=== PATIENT | female | born 1965 | race Caucasian/White ===

== ENCOUNTER → 2023-05-23 15:24 | Outpatient (REF) | payer BC, SELFPAY | LOC: RAD 15:24 | PROVIDERS: ATTENDING PHYSICIAN Nurse Practitioner Adult Health | DX: M25.511 Pain in right shoulder (principal) | CPT/HCPCS: 73030 ==

== ENCOUNTER → 2023-11-08 13:24 | Outpatient (REF) | payer BC, SELFPAY | LOC: HWWDC 13:24 | PROVIDERS: ATTENDING PHYSICIAN Nurse Practitioner Adult Health | DX: Z12.31 Encounter for screening mammogram for malignant neoplasm of breast (principal) | CPT/HCPCS: 77063; 77067 ==

== ENCOUNTER → 2024-05-29 13:13 | Outpatient (REF) | payer BC, SELFPAY | LOC: HWRAD 13:13 | PROVIDERS: ATTENDING PHYSICIAN Psychiatry & Neurology Psychiatry; FAMILY PHYSICIAN Student in an Organized Health Care Education/Training Program | DX: R41.3 Other amnesia (principal) | CPT/HCPCS: 70450 ==

== ENCOUNTER → 2025-01-08 10:55 | Outpatient (REF) | payer BC, SELFPAY | LOC: HWWDC 10:55 | PROVIDERS: ATTENDING PHYSICIAN Student in an Organized Health Care Education/Training Program | DX: Z12.31 Encounter for screening mammogram for malignant neoplasm of breast (principal) | CPT/HCPCS: 77063; 77067 ==

== ENCOUNTER 2025-03-15 15:19 | Inpatient (IN) | payer BC, SELFPAY ==
[2025-03-14 23:09] VITALS: BP 96/58
[2025-03-14 23:12] VITALS: BP 98/59
[2025-03-14 23:17] VITALS: BMI 33.4
[2025-03-14 23:43] LABS: Hematocrit 39.5 % (37.0-47.0); Hemoglobin 12.1 g/dL (12.0-16.0); Mean Corp Hgb Conc. 30.6 g/dL (33.0-37.0); Mean Corpuscular Volume 88.6 fL (81.0-99.0); Nucleated Red Blood Cells % 0 %; Platelet Count 302 10^3/uL (130-400); Red Cell Dist. Width 14.7 % (11.5-14.5)
[2025-03-14] MEDS: NSS 1000 IV (23:47)
--- NOTE | 2025-03-14 23:56 | ED.GENMED ---
History of Present Illness
<Ashley Black PA-C - Last Filed: 03/15/25 12:13>
General
Chief Complaint: Fall
Source: patient
Exam Limitations: altered mental status
Time Seen by Provider: 03/14/25 23:39
Nursing documentation reviewed up to this point in time: agreed with
History of Present Illness
History of Present Illness:
Patient is a 59-year-old female with history hypertension, insulin-dependent diabetes who presents to the emergency department for evaluation of left leg weakness. Patient's history taking is somewhat limited as her thought processes seem
disorganized. However, she states that she was walking in her kitchen talking to her nephew on the phone around 7/8 PM when she felt that her left foot was dragging on the ground. She felt that she had weakness. She then lost her balance and fell
however did not hit her head. She was on the phone with her nephew at the time who recommended she call [phone]. Patient apparently declined however her nephew then called 911 to her home.
Patient is concerned that she had a 'mini stroke'. She states the weakness in the left leg has improved. She denies any headache, visual changes, numbness/tingling in arms or legs. She denies any difficulties with speech or swallowing.
She states that she has been very depressed recently and her medications are not working. She currently takes sertraline prescribed by psychiatrist. However�she denies any acute suicidal or homicidal ideations.
Patient's nephew has concerns that she may be drinking alcohol although patient states she has not had alcohol in a few weeks. Her nephew states that she has been increasingly weak.
Past History
<Ashley Black PA-C - Last Filed: 03/15/25 12:13>
Past History
ED Past Medical History: GERD, HTN, Hypercholesterolemia, IDDM, Renal failure (Chronic kidney disease), Psychiatric (Anxiety/depression) and Other (Osteoarthritis); Negative CAD
ED Past Surgical History: Orthopedic (Bilateral ankle)
Social History
Tobacco: Smoker (Quit 3 weeks ago)
Alcohol: Occasional (Quit 3 weeks ago)
Drug: None
Living: with family
Employment: Not employed
Family History
Family History: Other (Noncontributory)
Review of Systems
<Ashley Black PA-C - Last Filed: 03/15/25 12:13>
Review of Systems
Allergies reviewed?: Yes
All Other Systems: ROS reviewed and negative except as documented in HPI and ROS
Phy Exam
<Ashley Black PA-C - Last Filed: 03/15/25 12:13>
Physical Exam
Physical Exam:
Vitals: BP soft, otherwise vital signs stable.
General: Patient is resting comfortably in no distress
Skin: Warm and dry, no rashes or lesions
Head: Normocephalic, atraumatic
Eyes: Sclera nonicteric. EOMs intact. Pupils equal round and reactive to light bilaterally. No nystagmus.
Throat: Dry mucous membranes. Protecting airway
Neck: Normal ROM, no cervical spine tenderness, no meningismus
Cardiac: Regular rate and rhythm, no murmurs.
Pulm: Normal respiratory effort. Lungs clear bilaterally
Abdomen: No abdominal tenderness.
.
Extremities: Strength 5/5 in right lower extremity, 4/5 in left lower extremity. Bilateral upper extremities strength 5/5.. Normal sensation
Neuro: AAOx3. CN II-XII grossly intact. No facial droop or asymmetry. No focal neurologic deficits.
Psychiatric: Somewhat disorganized thought process. + Depression
Course
<Ashley Black PA-C - Last Filed: 03/15/25 12:13>
Orders/Labs/Results
Orders:
Orders
03/14/25 23:28
EKG- Treatment ONCE
03/14/25 23:35
Alcohol Urgent
Complete Blood Count/With Diff Urgent
Comprehensive Metabolic Panel Urgent
03/14/25 23:40
Add On- LAB Urgent
Tests Added?: alcohol
0.9% Sodium Chloride 1000 ml [Nss] 1,000 ml IV BOLUS
03/14/25 23:41
Urinalysis Reflex To Culture Urgent
Date Specimen was Collected: 03/14/25
Time Specimen was Collected: 23:49
03/15/25 00:01
CT Head W/o Iv Contrast Urgent
Reason For Exam: left sided weakness
03/15/25 00:07
Electrocardiogram (*1) Urgent
Reason for Study: Fatigue / Weakness
EKG- Treatment ONCE
03/15/25 01:00
Urine Microscopic Reflex Cult Urgent
Urine Culture Urgent
JENNIFER Source: U
Specimen Description:
Date Specimen was Collected: 03/14/25
Time Specimen was Collected: 23:49
03/15/25 02:52
Admit/Transfer Patient As Directed
Co-Sign Provider:
Level of Care: Observation services
Assign to:: Telemetry
Physician / Group: Leonardo
Diagnosis: LE Weakness
Reason for Telemetry: CVA/TIA
Date to Stop Telemetry: 03/18/25
Time to Stop Telemetry: 11:00
PRN Pain Medication Management As Directed
May give lesser potent ordered pain med per pt: Yes
preference::
Protocol:: Medication orders for pain may be administered in a
manner that supports deferring to patient preference
when the pt is:
- Requesting an ordered lesser potent pain medication.
Least to most potent pain medications are defined
as: acetaminophen < NSAID < tramadol < opioids
(morphine, oxycodone, hydromorphone).
- Requesting a lesser dose of the same medication IF
ORDERED.
- Requesting a less intrusive route of administration
if both routes are prescribed by the provider (PO <
IV).
03/15/25 02:53
Code Status As Directed
Resuscitation Status: Full Code
03/15/25 04:21
Acetaminophen [Tylenol] 650 mg PO Q4HPRN PRN
Dextrose 50%-Water [Dextrose 50% Syringe] 12.5 grams IV [id number] PRN
Glucagon [GlucaGen] 1 mg IM PRN PRN
03/15/25 04:21
Consult Notification Routine
Specialty to Notify: Neurology
Date consulting provider notified: 03/15/25
Time consulting provider notified: 08:30
Notified:: Provider
NEUROLOGY CONSULT Routine
Consulting Provider: Remi Hudson
Was physician already notified: No
Reason for consult: LLE Weakness
Activity As Directed
Activity Level: Ambulate
With Assistance
Bedside Glucose Monitoring As Directed
Frequency: AC&HS
Additional Instructions:: Change to q6h if pt on TPN, tube feeding or not eating
EKG with chest pain [ECG as needed] As Directed
ECG as needed for:: Chest Pain
I/O [Intake/ Output] As Directed
Frequency: Per unit guidelines
Neurological Checks As Directed
Frequency: q4h
Orthostatic Vital Signs As Directed
Orthostatic VS Frequency: BID
Pneumatic Compression Sleeves As Directed
Type: Knee high
Vital Signs As Directed
Frequency: Per unit guidelines
Weight As Directed
Frequency: Daily
Oxygen Therapy [O2 Therapy] [RESP] Routine
Titrate/Wean O2 to maintain O2 sat greater than (%): 94
Ot Eval And Treat Routine
PT Consult [Pt Eval And Treat] Routine
Activity Level: Ambulate
With Assistance
Speech Therapy Eval & Treat Routine
DX Deep Vein Thrombosis Video Routine
03/15/25 Breakfast
2000 calorie (17 carb) Diabetic
At Your Request: Full Participation
Does patient need a safe tray?: No
Reason for opting out of [employer] Interface Developer order writing: Provider Decision
03/15/25 07:23
Basic Metabolic Panel IN AM
Cardiovascular Evaluation IN AM
Complete Blood Count/No Diff IN AM
Glycohemoglobin (HgbA1c) IN AM
TSH Reflex To Free T4 Routine
03/15/25 07:30
Insulin Aspart Corrective Low [Novolog Flexpen-Low Resistance] See Protocol SC AC
03/15/25 08:00
Aspirin Chewable [Low Strength Aspirin] 81 mg PO DAILY
Clopidogrel Bisulfate [Plavix] 75 mg PO DAILY
Dapagliflozin [Farxiga] 10 mg PO DAILY
Sertraline HCl [Zoloft] 50 mg PO DAILY
03/15/25 22:00
Atorvastatin [Lipitor] 40 mg PO HS
Olanzapine [Zyprexa] 7.5 mg PO HS
03/18/25 11:00
DC Protocol for Telemetry ONCE
Abnormal Lab Results
03/14/25 03/15/25
23:35 01:00
WBC 12.5 H 10^3/uL
(4.8-10.8)
MCHC 30.6 L g/dL
(33.0-37.0)
RDW 14.7 H %
(11.5-14.5)
Abs Immat Gran (auto) 0.1 H 10^3/uL
(0-0.05)
Absolute Neuts (auto) 8.8 H 10^3/uL
(1.4-6.5)
Absolute Monos (auto) 0.9 H 10^3/uL
(0.1-0.6)
Lymphocytes % 20.1 L %
(20.5-51.1)
Glucose 130 H mg/dl
(70-99)
Ur Occult Blood Reflex 1+ A
(Negative)
Leukocyte Esterase Rfl 3+ A
(Negative)
Urine WBC (Reflex) >100 A /HPF
(0-5)
Urine Bacteria (Reflex) Moderate A
(Negative)
Urine Glucose 4+ A
(Negative)
Urine Albumin (Reflex) 1+ A
(Neg - Trace)
03/14/25 23:35
03/14/25 23:35
Vital Signs
Initial and Last Documented VS:
Initial Vital Signs
BP Pulse Ox
96/58 96
03/14/25 23:09 03/14/25 23:09
Last Documented Vital Signs
Temp Pulse Resp BP Pulse Ox
97.5 F 101 16 163/81 97
03/15/25 07:25 03/15/25 07:25 03/15/25 07:25 03/15/25 07:25 03/15/25 07:45
Dorotalt;Jeronimo Hernandez, DO - Last Filed: 03/15/25 01:28>
Orders/Labs/Results
Orders:
Orders
03/14/25 23:28
EKG- Treatment ONCE
03/14/25 23:35
Alcohol Urgent
Complete Blood Count/With Diff Urgent
Comprehensive Metabolic Panel Urgent
03/14/25 23:40
Add On- LAB Urgent
Tests Added?: alcohol
0.9% Sodium Chloride 1000 ml [Nss] 1,000 ml IV BOLUS
03/14/25 23:41
Urinalysis Reflex To Culture Urgent
Date Specimen was Collected: 03/14/25
Time Specimen was Collected: 23:49
03/15/25 00:01
CT Head W/o Iv Contrast Urgent
Reason For Exam: left sided weakness
03/15/25 00:07
Electrocardiogram (*1) Urgent
Reason for Study: Fatigue / Weakness
EKG- Treatment ONCE
03/15/25 01:00
Urine Microscopic Reflex Cult Urgent
Urine Culture Urgent
JENNIFER Source: U
Specimen Description:
Date Specimen was Collected: 03/14/25
Time Specimen was Collected: 23:49
03/15/25 02:52
Admit/Transfer Patient As Directed
Co-Sign Provider:
Level of Care: Observation services
Assign to:: Telemetry
Physician / Group: Leonardo
Diagnosis: LE Weakness
Reason for Telemetry: CVA/TIA
Date to Stop Telemetry: 03/18/25
Time to Stop Telemetry: 11:00
PRN Pain Medication Management As Directed
May give lesser potent ordered pain med per pt: Yes
preference::
Protocol:: Medication orders for pain may be administered in a
manner that supports deferring to patient preference
when the pt is:
- Requesting an ordered lesser potent pain medication.
Least to most potent pain medications are defined
as: acetaminophen < NSAID < tramadol < opioids
(morphine, oxycodone, hydromorphone).
- Requesting a lesser dose of the same medication IF
ORDERED.
- Requesting a less intrusive route of administration
if both routes are prescribed by the provider (PO <
IV).
03/15/25 02:53
Code Status As Directed
Resuscitation Status: Full Code
03/15/25 04:21
Acetaminophen [Tylenol] 650 mg PO Q4HPRN PRN
Dextrose 50%-Water [Dextrose 50% Syringe] 12.5 grams IV [id number] PRN
Glucagon [GlucaGen] 1 mg IM PRN PRN
03/15/25 04:21
Consult Notification Routine
Specialty to Notify: Neurology
Date consulting provider notified: 03/15/25
Time consulting provider notified: 08:30
Notified:: Provider
NEUROLOGY CONSULT Routine
Consulting Provider: Remi Hudson
Was physician already notified: No
Reason for consult: LLE Weakness
Activity As Directed
Activity Level: Ambulate
With Assistance
Bedside Glucose Monitoring As Directed
Frequency: AC&HS
Additional Instructions:: Change to q6h if pt on TPN, tube feeding or not eating
EKG with chest pain [ECG as needed] As Directed
ECG as needed for:: Chest Pain
I/O [Intake/ Output] As Directed
Frequency: Per unit guidelines
Neurological Checks As Directed
Frequency: q4h
Orthostatic Vital Signs As Directed
Orthostatic VS Frequency: BID
Pneumatic Compression Sleeves As Directed
Type: Knee high
Vital Signs As Directed
Frequency: Per unit guidelines
Weight As Directed
Frequency: Daily
Oxygen Therapy [O2 Therapy] [RESP] Routine
Titrate/Wean O2 to maintain O2 sat greater than (%): 94
Ot Eval And Treat Routine
PT Consult [Pt Eval And Treat] Routine
Activity Level: Ambulate
With Assistance
Speech Therapy Eval & Treat Routine
DX Deep Vein Thrombosis Video Routine
03/15/25 Breakfast
2000 calorie (17 carb) Diabetic
At Your Request: Full Participation
Does patient need a safe tray?: No
Reason for opting out of Hl[employer] Interface Developer order writing: Provider Decision
03/15/25 07:23
Basic Metabolic Panel IN AM
Cardiovascular Evaluation IN AM
Complete Blood Count/No Diff IN AM
Glycohemoglobin (HgbA1c) IN AM
TSH Reflex To Free T4 Routine
03/15/25 07:30
Insulin Aspart Corrective Low [Novolog Flexpen-Low Resistance] See Protocol SC AC
03/15/25 08:00
Aspirin Chewable [Low Strength Aspirin] 81 mg PO DAILY
Clopidogrel Bisulfate [Plavix] 75 mg PO DAILY
Dapagliflozin [Farxiga] 10 mg PO DAILY
Sertraline HCl [Zoloft] 50 mg PO DAILY
03/15/25 22:00
Atorvastatin [Lipitor] 40 mg PO HS
Olanzapine [Zyprexa] 7.5 mg PO HS
03/18/25 11:00
DC Protocol for Telemetry ONCE
Abnormal Lab Results
03/14/25 03/15/25
23:35 01:00
WBC 12.5 H 10^3/uL
(4.8-10.8)
MCHC 30.6 L g/dL
(33.0-37.0)
RDW 14.7 H %
(11.5-14.5)
Abs Immat Gran (auto) 0.1 H 10^3/uL
(0-0.05)
Absolute Neuts (auto) 8.8 H 10^3/uL
(1.4-6.5)
Absolute Monos (auto) 0.9 H 10^3/uL
(0.1-0.6)
Lymphocytes % 20.1 L %
(20.5-51.1)
Glucose 130 H mg/dl
(70-99)
Ur Occult Blood Reflex 1+ A
(Negative)
Leukocyte Esterase Rfl 3+ A
(Negative)
Urine WBC (Reflex) >100 A /HPF
(0-5)
Urine Bacteria (Reflex) Moderate A
(Negative)
Urine Glucose 4+ A
(Negative)
Urine Albumin (Reflex) 1+ A
(Neg - Trace)
03/14/25 23:35
03/14/25 23:35
Vital Signs
Initial and Last Documented VS:
Initial Vital Signs
BP Pulse Ox
96/58 96
03/14/25 23:09 03/14/25 23:09
Last Documented Vital Signs
Temp Pulse Resp BP Pulse Ox
97.5 F 101 16 163/81 97
03/15/25 07:25 03/15/25 07:25 03/15/25 07:25 03/15/25 07:25 03/15/25 07:45
<Ashley Black PA-C - Last Filed: 03/15/25 12:13>
MDM/Problems Addressed
Differential Diagnosis Includes:
Not limited to: Depression, acute dehydration, UTI, TIA/CVA, alcohol abuse, brain bleed, brain mass, etc.
MDM/Problems Addressed:
59-year-old female presenting with left lower extremity weakness resulting in fall at home. She states her left leg feels �heavy�. It is somewhat unclear what time these symptoms started possibly around 6 PM no other neurological symptoms. She did
not strike her head. She does admit to having some issues with mental health and worsening depression.
Vital signs reviewed. On exam, patient is awake and alert. She does appear to have some mildly decreased strength in left lower extremity however can move against gravity. No loss of sensation in extremities. LLE is neurovascularly intact. No other
neurological deficits noted.
Impression is left sided weakness of unknown etiology. Concern would be central process, including CVA. Patient has an NIH of 0 and onset somewhat unclear � TNK not indicated.
Will check basic labs, UA, CT head. Patient will likely require admission.
Update: labs with mild leukocytosis. Otherwise labs unremarkable. CT head without acute findings.
Patient was able to ambulate to the bathroom with assistance however, did have additional fall up upon return to bed due to left leg weakness. She did not strike her head or sustained any injuries.
Ultimately � patient will require admission for further workup and likely MRI to rule out CVA, other central process.
UA appears contaminated � will hold antibiotics. Patient accepted to hospitalist service in stable condition.
Chronic conditions affecting care:
Insulin-dependent diabetes, hypertension, depression
Acute Exacerbation and/or Progression of Chronic Illness:
N/A
<Ashley Black PA-C - Last Filed: 03/15/25 12:13>
*Radiology
Radiology exam reviewed: radiology read reviewed
*Pulse Oximetry
SaO2: 96
Oxygen Mode of Delivery: Room air
Patient hypoxic: no
*EKG
Interpreted by ED Provider?: Yes
EKG Intrepretation Date: 03/15/25
Interpretation: abnormal
Comparison EKG: no changes
Heart Rate: 81
Rate: normal
Rhythm: sinus
[place]: normal axis
Interval: normal QT interval
QRS Pattern: normal QRS
Ischemia: non-specific ST changes
*Hose Cementer Interpretation
Rate: normal
Interpretation: normal
Heart Rate: 80
Rhythm: sinus
*Critical Care Note
Total Time (30-74mins, 75-104mins- exclusive of procedures): Not Applicable
<Ashley Black PA-C - Last Filed: 03/15/25 12:13>
Patient Management
Discussion with other providers: Hospitalist
ED Attending Note
<Ashley Black PA-C - Last Filed: 03/15/25 12:13>
-
Portions of this chart may have been created with voice recognition software.� Occasional wrong word or��sound alike� substitutions may have occurred due to the inherent limitations of voice recognition software.
<Jeronimo Hernandez DO - Last Filed: 03/15/25 01:28>
ED Attending Note
Patient seen and examined by attending physician: Yes
I performed the substantive portion of visit, reviewed & personally made and approve the management plan that is documented in note by myself or SYLVAIN.: Yes
I performed a history and physical exam of patient and discussed management with resident, I reviewed resident's note and agree with documented findings and plan of care.: Yes
ED Attending Note:
59-year-old female brought to the ER by EMS for evaluation of weakness, possibly progressive over the last 2 weeks. Patient reports that tonight she felt as though she was dragging her leg-this has resolved. She denies any syncope. She denies any
complaint of pain. She admits to having issues with mental health. Vital signs reviewed, patient is awake, alert, GCS is 15, able to ambulate to the bathroom with a steady gait and no focal weakness noted, no foot drop, unusual affect. On walking
back from the toilet, tech noted that patient lost strength in her left lower extremity and she ended up kneeling on the ground. She was assisted back to bed. No other episodes of weakness noted. NIHSS 0. TPA not indicated. Awaiting [facility] for
admission for further evaluation
Discharge Plan
Departure
Patient Disposition: Admit
Date of Disposition: 03/15/25
Time of Disposition: 02:04
Presentation/result/management discussed w/ accepting MD/DO: Hospitalist
Discharge Problem:
Left leg weakness, Depression
Interventions
Interventions:
*Risk Screen - Suicide Last Done: 03/14/25 23:48
*General Assessment Last Done: 03/14/25 23:18
*Neglect/Abuse Screening Last Done: 03/14/25 23:18
*ED- Fall Risk Assessment Last Done: 03/14/25 23:18
*ED COVID-19 Vaccine History Last Done: 03/14/25 23:18
*ED Influenza Vaccine History Last Done: 03/14/25 23:18
*Nursing Disposition Last Done: 03/15/25 04:09
ED-Musculoskeletal Assessment Last Done: 03/14/25 23:18
ED- Neurological Assessment Last Done: 03/14/25 23:18
ED-Skin Assessment Last Done: 03/14/25 23:18
Discharge Date and Time
Discharge Date/Time: 03/15/25 04:10
[2025-03-15] VITALS (12 sets, daily range): BP systolic 121–163; BP diastolic 65–96; PULSE 87–94; BMI 33.2
[2025-03-15 00:05] LABS: ALT (SGPT) 19 U/L (0-35); AST (SGOT) 25 U/L (14-36); Albumin 4.1 g/dl (3.5-5.0); Alkaline Phosphatase 80 U/L (38-126); Blood Urea Nitrogen 15 mg/dl (7-17); Calcium 9.3 mg/dl (8.4-10.2); Carbon Dioxide 24 mmol/L (22-30); Chloride 104 mmol/L (98-107); Estimated Creatinine Clearance 67 ml/min; Glucose 130 mg/dl (70-99); Potassium 3.9 mmol/L (3.5-5.1); Sodium 136 mmol/L (135-145); Total Protein 7.0 g/dl (6.3-8.2); eGFR > 60.00
[2025-03-15 01:14] LABS: Urine Character Slightly Cloudy (Clear)
[2025-03-15 01:31] LABS: Urine Squamous Cell >30 /LPF (Few); Urine Urothelial Cell >30 /LPF (FEW); Urine White Cell >100 /HPF (0-5)
--- NOTE | 2025-03-15 02:54 | HPS.HSE ---
Family Physician
-
Family Physician: NOT KNOW UNKNOWN - PT DOES
Chief Complaint
-
LLE Weakness
History of Present Illness
Patient is a 59y F with PMH significant for hypertension, DM-II and major depression who presents to ED complaining of LLE weakness. History obtained from patient as well as family who are on the phone throughout the history and exam. Patient
states that she has been struggling with her depression symptoms over the past several weeks. She has generally not felt very well. Today she noted that her LLE 'gave out' while she was walking and she fell at home. She denies any head injury or
loss of consciousness. She was on the phone with her nephew at that time and he reports 'hearing a crash'. Patient presented to the ED for further evaluation.
She complains of sense of numbness and tingling of the lips / perioral area. No numbness / tingling in the arms or legs. No vision changes or headache.
She denies any prior h/o similar symptoms.
Patient denies any recent symptoms of illness including fevers / chills, chest pain, cough, N/V/D or dysuria.
She does report episodes of incontinence of both urine and stool. She states that this has happened occasionally over the past year.
No prior h/o GA or CVA.
Patient notes that she was just started on telmisartan about one month ago for BP.
No other new medications.
Medical History
Past Medical History
Past Medical History: Reports Other
Additional Past Medical History:
Hypertension
DM-II
Major Depression
RACHEL
Obesity
Congenital L Eye Blindness
Past Surgical History: Reports Other
Additional Past Surgical History:
L Eye Surgery
LEEP
Social History
Tobacco: Smoker (Occasional smoker ('only when I drink').)
Alcohol: Occasional
Drug: None
Living: Alone
Family History
Family History: Not pertinent
Allergies / Home Medications
Allergies reflects when Allergies were last updated in [facility].
Home Medications with original date entered in [facility]
Allergy/Medication List:
Allergies
Allergy/AdvReac Type Severity Reaction Status Date / Time
sulfamethoxazole (From Allergy Unknown Unknown Verified 03/14/25 23:16
Bactrim)
trimethoprim (From Bactrim) Allergy Unknown Unknown Verified 03/14/25 23:16
Home Medications
atorvastatin 40 mg tablet 40 mg PO HS 03/15/25
dapagliflozin propanediol 10 mg tablet (Farxiga) 10 mg PO DAILY 03/15/25
fenofibrate nanocrystallized 145 mg tablet 145 mg PO DAILY 03/15/25
insulin degludec 100 unit/mL (3 mL) subcutaneous pen (Tresiba FlexTouch U-100 insulin) 40 unit SC HS 03/15/25
metformin 500 mg tablet 2,000 mg PO HS 03/15/25
olanzapine 7.5 mg tablet 7.5 mg PO HS 03/15/25
sertraline 50 mg tablet 50 mg PO DAILY 03/15/25
telmisartan 20 mg tablet 20 mg PO DAILY 03/15/25
Review of Systems
-
History Source: Patient
A 12 point ROS was completed and negative except as noted: Yes
Constitutional: Reports Fatigue; Denies Fever or Chills
EENT: Denies Sore Throat
Respiratory: Denies Cough or Trouble Breathing
Cardiac: Denies Chest Pain, Diaphoresis, Palpitations or Syncope
Abdomen/GI: Reports Other (occ fecal incontinence); Denies Abdominal Pain, Nausea, Vomiting or Diarrhea
: Reports Incontinence; Denies Dysuria, Frequency or Flank Pain
Musculoskeletal: Denies Joint Pain or Edema
Neurological: Reports Weakness and Numbness; Denies Dizzy or Headache
Psych: Reports Depression and Anxiety
Physical Exam
Vital Signs
Vital Signs
Temp Pulse Resp BP Pulse Ox
98.0 F 82 12 98/59 96
03/14/25 23:12 03/14/25 23:15 03/14/25 23:15 03/14/25 23:12 03/14/25 23:57
Physical Exam
General: Other (59y F in no acute distress.)
HEENT: Moist mucous membranes and Other (Thick neck.)
Respiratory: Clear; No Wheezes, Rales or Rhonchi
Cardiac: S1/S2 and Regular Rhythm; No Murmur
GI: Soft, Non Tender, Non Distended and Normal Bowel Sounds
Musculoskeletal: No Clubbing, No Cyanosis and No Edema
Neuro: AO x 3 and Other (Mild proximal muscle weakness LLE compared to the R. Sensation is intact / symmetric. Normal [id number]. ROM / strength at the ankle in particular is intact - no evident 'foot drop'.)
Laboratory Results
-
03/14/25 23:35
03/14/25 23:35
Laboratory Results
Total Bilirubin 0.4 mg/dl (0.2-1.3) 03/14/25 23:35
AST 25 U/L (14-36) 03/14/25 23:35
ALT 19 U/L (0-35) 03/14/25 23:35
Alkaline Phosphatase 80 U/L (38-126) 03/14/25 23:35
Impression/Plan
-
A/P: Patient is a 59y F with PMH significant for HTN, DM-II and depression who presents to ED complaining of LLE weakness and fall at home.
LLE Weakness
Fall at Home
- Observe overnight for further evaluation and treatment.
- Fall at home. Second fall here in the ED with ? mechanics.
- Patient reports that she 'tripped over my foot' walking from the bathroom and fell.
- Staff was in the room at the time of the event and reports that patient ambulated to and from the bathroom without issue, walked back to the bed, 'flopped' down on the bed and slid off to the floor.
- Some proximal muscle weakness in the LLE appreciated on exam.
- CT head in the ED with no acute abnormality.
- Not TNK candidate due to low NIH.
- Check MRI brain in AM. MR L-spine as well given ? foot drop description as well as reported issues with incontinence.
- ASA / Plavix for now. Check lipids, A1C, etc.
- PT / OT evaluations.
- Neurology evaluation for additional recommendations.
- Monitor for any new / worsening symptoms.
Major Depressive Disorder
- Family over the phone concerned about mental health and notes significant recent issues with major depression.
- Continue current psychotropic medications for now.
- Rule out other possible etiologies as noted above.
- Consider formal Psych evaluation if other work-up proves unremarkable and symptoms persist.
Benign Hypertension
- BP is borderline low at present. ? if this has contributed to recent sense of 'not feeling well'.
- Stop telmisartan.
- Follow for changes. Monitor orthostatic signs.
DM-II
- Stable. Continue basal insulin and cover with SSI as needed.
- Continue Farxiga.
- Hold metformin for now - would encourage BID dosing (or XR formulation) on discharge.
- Update A1C as noted above.
Obesity due to excess calories
- Affects all aspects of care.
- Encourage healthy diet and increased activity with goal of weight loss.
DVT Prophylaxis: SCDs
Code Status: Full
[2025-03-15 05:18] LABS: Glucose - Point of Care 188 mg/dl (70-99)
[2025-03-15 07:43] LABS: Glucose - Point of Care 170 mg/dl (70-99)
[2025-03-15] MEDS: NOVOLOG FLEXPEN-LOW RESISTANCE SC ×2 (07:45→12:00)
[2025-03-15] MEDS: PLAVIX 75 MG PO (08:33)
[2025-03-15] MEDS: FARXIGA 10 MG PO (08:33)
[2025-03-15] MEDS: LOW STRENGTH ASPIRIN 81 MG PO (08:33)
[2025-03-15] MEDS: ZOLOFT 50 MG PO (08:34)
--- NOTE | 2025-03-15 08:39 | W.PN.HOSP.TC ---
Today's Communication/Plan
-
DAPT and statins. MRI of the brain.
Assessment / Plan
Assessment / Plan
Physical exam:
General: Acutely ill
HEENT: Normocephalic, Atraumatic and Moist Mucous Membranes
Respiratory: Clear to Auscultation; Negative Wheezes, Rales or Rhonchi
Cardiac: Regular Rhythm and S1/S2
GI: Soft, Nontender and Nondistended
Musculoskeletal: No Clubbing, No Cyanosis and No Edema
Neuro: Awake, Alert and Oriented, left lower extremity weakness present, mild sensory deficit in the left lower extremity as well. Cranial nerves are intact.
Psych: Calm
A/P:
Acute to subacute stroke:
Continue dual antiplatelet therapy
Continue statin
Check hemoglobin A1c
Check fasting lipids today
PT OT eval
Brain MRI if seen
Neurology consult appreciated
Depression with ?suicidal ideas:
Patient agreeable to psychiatry evaluation
Suicidal precaution until evaluated by psychiatry
Continue current antipsychotic
Hypertension:
Continue home antihypertensives
Diabetes mellitus:
Continue insulin sliding scale
Hyperlipidemia:
Continue statin
DVT prophylaxis:
Lovenox SQ
CODE STATUS:
Full code
Total time spent on today's encounter was 36 minutes which included time spent in counseling the patient/family regarding diagnosis and treatment plan as listed above, goals of care, and symptom management. Case was discussed with nursing staff,
specialists, and care coordinators/case management. All labs and imaging personally reviewed by me. Remainder the time spent in detailed review of previous records, lab data, imaging, and other medical provider documentation.
Anticipated Discharge: 24 - 48 hours
Subjective/Interval History
-
Date of Service: March 15, 2025
Patient still weak in her left lower extremity. She also had a fall this morning. No chest pain or shortness of breath.
Objective Data
-
Labs:
Laboratory Results
03/14/25 03/15/25
23:35 07:23
WBC 12.5 H Pending
Hgb 12.1 Pending
Hct 39.5 Pending
Plt Count 302 Pending
Sodium 136 Pending
Potassium 3.9 Pending
Chloride 104 Pending
Carbon Dioxide 24 Pending
BUN 15 Pending
Creatinine 0.9 Pending
Glucose 130 H Pending
Calcium 9.3 Pending
Total Bilirubin 0.4
AST 25
ALT 19
Alkaline Phosphatase 80
Vital Signs:
Vital Signs
Temp Pulse Resp BP Pulse Ox
98.5 F 84 16 143/73 95
03/15/25 04:33 03/15/25 04:33 03/15/25 04:33 03/15/25 04:33 03/15/25 05:28
I&O
03/14/25 03/15/25 03/16/25
06:59 06:59 06:59
Intake Total 480 / 480
Balance 480 / 480
[2025-03-15 08:45] LABS: Hematocrit 34.8 % (37.0-47.0); Hemoglobin 11.2 g/dL (12.0-16.0); Mean Corp Hgb Conc. 32.2 g/dL (33.0-37.0); Mean Corpuscular Volume 87.0 fL (81.0-99.0); Platelet Count 280 10^3/uL (130-400); Red Cell Dist. Width 14.8 % (11.5-14.5)
--- NOTE | 2025-03-15 08:50 | CON.NEURO ---
Addendum entered and electronically signed by Alfredo Gamble MD 03/15/25 11:22:
Studies reviewed.
I have personally examined the patient. I reviewed and agree with the THERAPY SITE COORDINATOR's Note.
My addenda:
Awake, alert, interactive. No acute distress.
Speech intact. Somatic content.
Follows 2-step requests w/o difficulty. No tremor.
Extra-ocular movements grossly intact.
Facial movements full and symmetric. Hearing intact to normal conversational volume.
Normal UE movements bilaterally.
Neck: full ROM.
Chest: no dyspnea
Heart: no JVD
Ext: (-) Clubbing, (-) Cyanosis, (-) Edema
IMPRESSIONS/RECOMMENDATIONS:
Abrupt onset left lower extremity weakness with unclear history as to the duration of weakness. Patient has a longstanding history of left eye blindness. Patient has experienced 2 episodes of falls since presentation to this hospital, following
the initial fall leading to presentation.
Differential diagnosis is broad and includes acute ischemic stroke, functional neurological disorder, and thoracolumbar spinal stenosis
Start off with MRI of brain without contrast to evaluate for stroke
Check CTA head and neck
Provide aspirin and clopidogrel for 21 days followed by aspirin 81 mg monotherapy
Continue atorvastatin 40 mg at night which the patient was utilizing prior to admission, LDL is at goal
Rehabilitation evaluations and treatment
Psychiatric consult as the patient reports suicidal ideation
D/W patient
All questions answered.
Will continue to follow patient.
Original Note:
Documented by User: Kristine Kay NP 03/15/25 10:52
Neuro Assessment/Plan
Assessment
Patient is a 59 year old left-handed female with PMH significant for hypertension, DM-II and major depression who presents to [facility] ED on 03/14/2025 complaining of LLE weakness.
Head CT 03/15/2025: No acute intracranial abnormality noted.
Labs: Hgb A1C 6.6, Cholesterol 147, LDL 53
Brain MRI: pending
Plan
Impression: ischemic stroke unclear if acute or chronic given unclear onset of symptoms vs functional neurological disorder given history of depression
-check MRI brain without contrast to evaluate for stroke
-check CTA head/neck for completeness
-continue aspirin and clopidogrel for 21 days followed by monotherapy with aspirin
-continue atorvastatin 40 mg nightly
-PT/OT/ST evaluations
-DVT prophylaxis
-continue neurochecks and NIHSS per unit guidelines
-stroke education packet to be provided
-psych consult for depression
All questions encouraged and answered, plan of care discussed with Dr. Gamble and patient
Consultation
Order
Date of Consultation: 03/15/25
Requesting Provider: hospitalist/Dr. Elías Patterson
Reason for Consult: LLE weakness
Subjective/Objective
Subjective Data
Date of Service: March 15, 2025
Patient is a 59 year old left-handed female with PMH significant for hypertension, DM-II and major depression who presents to [facility] ED on 03/14/2025 complaining of LLE weakness. Patient states that she has been struggling with her depression
symptoms over the past several weeks. She has generally not felt very well. On day of admission, she noted that her LLE 'gave out' while she was walking and she fell at home. She denies any head injury or loss of consciousness. Patient presented to
the ED for further evaluation. She also fell in the ED while ambulating to the bathroom and again this morning. She notes a pain in her LLE which has been ongoing for 5 years that is intermittent. States she falls occasionally because of leg pain.
She complains of sense of numbness and tingling of the lips / perioral area which started yesterday in the morning unsure of time, also notes dysarthria that started later in the evening. Notes heaviness in LUE which she noticed today. No numbness /
tingling in the arms or legs. No vision changes or headache. She denies any prior h/o similar symptoms. Patient denies any recent symptoms of illness including fevers / chills, chest pain, cough, N/V/D or dysuria. She does report episodes of
incontinence of both urine and stool ongoing for 1 year. No prior h/o OK or CVA. Patient notes that she was just started on telmisartan about one month ago for BP. No other new medications. States that she has seen a neurologist in the past to
discuss prior CT head findings of mild diffuse cortical atrophy with mild nonspecific white matter changes. CT head in the ED with no acute abnormality. Not TNK candidate due to low NIHSS. Brain MRI pending.
Objective Data
Vital Signs
Temp Pulse Resp BP Pulse Ox
97.5 F 101 16 163/81 97
03/15/25 07:25 12 07:25 03/15/25 07:25 03/15/25 07:25 03/15/25 07:25
Lab Results
03/15/25 07:23
Sodium 136 mmol/L (135-145) 03/14/25 23:35
Potassium 3.9 mmol/L (3.5-5.1) 03/14/25 23:35
BUN 15 mg/dl (7-17) 03/14/25 23:35
Glucose 130 mg/dl (70-99) H 03/14/25 23:35
Calcium 9.3 mg/dl (8.4-10.2) 03/14/25 23:35
Patient Allergies
sulfamethoxazole (From Bactrim) Allergy (Unknown, Verified 03/14/25 23:16)
Unknown
trimethoprim (From Bactrim) Allergy (Unknown, Verified 03/14/25 23:16)
Unknown
CVA Assessment
NIH Stroke Score
Level of Consciousness: 0 - Alert
LOC Questions: 0-Answers both correctly
LOC Commands: 0-Performs both correctly
Best Horizontal Gaze: 0-Normal
Visual Guerrero: 0=Normal, no visual loss
Facial Palsy: 0=Normal, symmetrical
Motor - Right Arm: 0=No drift 10 seconds
Motor - Left Arm: 1=Drift < 10 seconds
Motor - Right Le-No drift 5 seconds
Motor - Left Le-No drift 5 seconds
Limb Ataxia: 2-Present in two limbs
Sensation: 0-Normal
Best Language: 0-No aphasia
Dysarthria: 0-Normal
Extinction and Inattention: 0-No abnormality
NIH Total Score:: 3
Tenecteplase Contraindications
Inclusion and Exclusion criteria reviewed: Yes
IAT Contraindications: NIHSS < 6
Review of Systems
-
History Source: Patient
Constitutional: No Symptoms
EENT: No Symptoms Reported
Respiratory: No Symptoms
Cardiac: No Symptoms
Abdomen/GI: No Symptoms
Genitourinary: No Symptoms
Musculoskeletal: No Symptoms
Skin: No Symptoms
Neuro: Other (LLE weakness)
Endocrine: No Symptoms
Hematologic / Lymphatic: No Symptoms
Allergy / Immunology: No Symptoms
Physical Exam
-
General: No Apparent Distress and Appears Stated Age
HEENT: Normocephalic, Atraumatic and Anicteric
Neck: Full Range of Motion
Respiratory: No Dyspnea
Cardiac: No JVD
GI: Non-distended
Skin: Unremarkable
Extremities: No Clubbing, No Cyanosis and No Edema
Psych: Depressed and Anxious
Extended Neurological Exam
Mood & Affect: Depressed and Anxious
Attention Span & Concentration: Awake, Alert, Interactive and No Difficulty with 2 Step Request
Memory: Unremarkable
Tremor: Hand Tremor Absent and Head Tremor Absent
Involuntary Movement: None
Speech: Quality Unremarkable and Quantity Unremarkable
Cranial Nerve II: Left Eye: Visual Guerrero Reduced (chronic)
Cranial Nerve VII: Facial Symmetry: Normal Facial Symmetry
Cranial Nerve VIII: Hearing: Unremarkable Hearing to Normal Conversational Volume
Cranial Nerves IX, X: Palate Movement: Palate Elevation Symmetric
Cranial Nerve XII: Tongue Protusion: Midline
Muscle Strength, Overall: Reduced on Left (5-/5 on LLE and 4/5 on LUE)
Muscle Bulk & Tone: Bulk Unremarkable and Tone Unremarkable
Pronator Drift: Drift in Left Upper Extremity and No Drift in Lower Extremities
Deep Tendon Reflexes: Negative Clonus
Touch Sensation: Unremarkable and Double Simultaneous Stimulation Unremarkable
Coordination: Other (LUE ataxia)
Data Reviewed
-
CT Head: Report Reviewed and Image Reviewed
MRI Head: Ordered
MRI Lumbar Spine: Ordered
Medical Test Reports: Report Reviewed
Labs: Report Reviewed
Reviewed with: Physician, Nurse and Patient
Old Records: Summarized
Medications
-
Active Medications
Generic Name Dose Route Start Last Admin
Trade Name Freq PRN Reason Stop Dose Admin
Acetaminophen 650 mg 03/15/25 04:21
Acetaminophen 325 Mg Tablet PO 04/12/25 04:20
Q4HPRN PRN
Mild Pain / Temp > 101
Aspirin 81 mg 03/15/25 08:00 03/15/25 08:33
Aspirin 81 Mg Chewable Tablet PO 04/12/25 07:59 81 mg
DAILY DELANEY Administration
Atorvastatin Calcium 40 mg 03/15/25 22:00
Atorvastatin (Lipitor) 40 Mg Tablet PO 04/12/25 21:59
HS DELANEY
Clopidogrel Bisulfate 75 mg 03/15/25 08:00 03/15/25 08:33
Clopidogrel 75 Mg Tablet PO 04/12/25 07:59 75 mg
DAILY DELANEY Administration
Dapagliflozin 10 mg 03/15/25 08:00 03/15/25 08:33
Dapagliflozin (Farxiga) 10 Mg Tablet PO 04/12/25 07:59 10 mg
DAILY DELANEY Administration
Dextrose 12.5 grams 03/15/25 04:21
Dextrose 50% (0.5 Grams/Ml) 50 Ml Syringe IV 04/12/25 04:20
[id number] PRN
hypoglycemia
Protocol
Glucagon 1 mg 03/15/25 04:21
Glucagon 1 Mg Vial IM 04/12/25 04:20
PRN PRN
hypoglycemia
Protocol
Insulin Glargine 30 units/ 0.3 mls @ 0 mls/hr 03/15/25 22:00
Device SC 04/12/25 21:59
HS DELANEY
As Directed
Insulin Aspart 0 units 03/15/25 07:30
Insulin Aspart Low Resistance 300 Units/3 Ml Pen.Injctr SC 04/12/25 07:29
AC DELANEY
Protocol
Olanzapine 7.5 mg 03/15/25 22:00
Olanzapine 7.5 Mg Tablet PO 04/12/25 21:59
HS DELANEY
Sertraline HCl 50 mg 03/15/25 08:00 03/15/25 08:34
Sertraline 50 Mg Tablet PO 04/12/25 07:59 50 mg
DAILY DELANEY Administration
Sodium Chloride 0 flush 03/15/25 05:00
Sodium Chloride 0.9% (Flush) Syringe IV 04/12/25 04:59
PER PROTOCOL DELANEY
Home Medications
�Medication �Instructions �Recorded
atorvastatin 40 mg tablet 40 mg PO HS 03/15/25
dapagliflozin propanediol 10 mg 10 mg PO DAILY 03/15/25
tablet (Farxiga)
fenofibrate nanocrystallized 145 145 mg PO DAILY 03/15/25
mg tablet
insulin degludec 100 unit/mL (3 40 unit SC HS 03/15/25
mL) subcutaneous pen (Tresiba
FlexTouch U-100 insulin)
metformin 500 mg tablet 2,000 mg PO HS 03/15/25
olanzapine 7.5 mg tablet 7.5 mg PO HS 03/15/25
sertraline 50 mg tablet 50 mg PO DAILY 03/15/25
telmisartan 20 mg tablet 20 mg PO DAILY 03/15/25
Past History
Past History
ED Past Medical History: GERD, HTN, Hypercholesterolemia, IDDM, Renal failure (Chronic kidney disease), Psychiatric (Anxiety/depression) and Other (Osteoarthritis); Negative CAD
ED Past Surgical History: Orthopedic (Bilateral ankle)
Family/Social History
Tobacco: Smoker (Quit 3 weeks ago)
Alcohol: Occasional (Quit 3 weeks ago)
Drug: None
Living: with family
Employment: Not employed
Family History: Other (Noncontributory)

Documented by User: Alfredo Gamble MD 03/15/25 11:09
CVA Assessment
NIH Stroke Score
NIH Total Score:: 3
[2025-03-15 09:29] LABS: Blood Urea Nitrogen 12 mg/dl (7-17); Calcium 9.0 mg/dl (8.4-10.2); Carbon Dioxide 25 mmol/L (22-30); Chloride 105 mmol/L (98-107); Estimated Creatinine Clearance 75 ml/min; Glucose 169 mg/dl (70-99); HDL Cholesterol 64 mg/dl; LDL Cholesterol, Calculated 53 mg/dl; Potassium 3.7 mmol/L (3.5-5.1); Sodium 136 mmol/L (135-145); Very Low Density Lipoprotein 30 mg/dl (0-30); eGFR > 60.00
--- NOTE | 2025-03-15 09:40 | PTOTSP ---
Dysphagia Evaluation:
Pt presents w/ acute risk factors for aspiration/dysphagia given acute TIA/CVA symptoms. However, no overt s/sx of aspiration observed during bedside swallow evaluation, no reports of difficulty swallowing w/ oral intake, no hx of dysphagia, 03/[address] negative for acute abnormalities, pt is on room air, and WBC = 9.3. It is recommended that ST F/U pending MRI results for observance of diet level tolerance and further cognitive-linguistic evaluation.
Recommendations:
1. Regulars, Thins
2. Medications as best tolerated
3. General aspiration precautions
4. ST to F/U to observe diet level tolerance, determine if instrumental swallow study warranted given acute risk factors, and further assess language/cognition pending Brain MRI results.
[2025-03-15 10:33] LABS: Glycohemoglobin (HgbA1c) 6.6 % (4.0-5.9)
[2025-03-15] MEDS: ATIVAN 1 MG PO (10:56)
--- NOTE | 2025-03-15 11:05 | FALL ---
07:25 Pt had an unwitnessed fall. Pt found on floor next to the bed.
Action Taken: Pt picked up off floor by staff and placed back to bed. Pt assessed for injuries. No injuries noted. VSS. aware.
Name of Provider Notified: Dr. Boyce made aware.
[2025-03-15 11:56] LABS: Glucose - Point of Care 148 mg/dl (70-99)
--- NOTE | 2025-03-15 16:12 | CON.CAR ---
Addendum entered and electronically signed by Dejah Hampton DO 03/15/25 17:47:
I saw and examined the patient.
The Tank Truck Loader's note was reviewed and I agree with the note.
Comment: Patient was seen and examined with one-to-one present for SI/depression. Patient came to the ER yesterday after she had a fall at home and was admitted with LLE weakness and workup, cardiology consulted after MRI revealed acute/subacute
CVA. Patient lives alone and says that she was on the phone with her nephew and noted left leg heaviness and felt like she had to drag her left leg while she was walking. Patient has never had a problem like that before. Patient's nephew
encouraged patient to seek emergency care, the patient declined. Then while on the phone there was a loud sound and patient's nephew lost communication with the patient prompting him to call 911. When paramedics arrived the patient was able to
answer the door and was walking, patient was taken to the ER for possible CVA. In the ER patient had a witnessed fall while trying to get back into bed after using the bathroom. Patient was seen in consultation by neurology and had an MRI of the
brain today that showed an acute/subacute CVA involving the right thalamus. No history of prior cardiac workup; no history of atrial fibrillation. Denies a history of sleep apnea but has never been tested. She does smoke cigarettes occasionally
and has a history of alcohol use disorder but denies drinking on a daily basis at this time.
GEN: Awake alert and oriented x 3. No facial asymmetry. Speech clear and coherent
HEENT:mmm
LUNGS: Bronchovesicular breath sounds decreased at the bases but clear bilaterally
CV: SR on telemetry. Reg, S1/S2, no murmur
ABD: ND, positive bowel
EXT: No edema B/L LE
Plan:
Acute/subacute right thalamus CVA on MRI of brain 03/15/2025
- Neurology consulted
- CTA head with no large vessel occlusion however there is likely a focal high-grade stenosis within the distal P2 beak segment of the right posterior cerebral artery and mild athletic calcifications noted without significant stenosis. CTA neck with
no significant arterial stenosis but mild mixed atherosclerotic plaque in the bilateral carotid bifurcations and proximal ICAs, less than 30%.
-Telemetry monitoring has so far been sinus rhythm/sinus tachycardia
-Recommend echo with bubble study, 03/15/2025. Will evaluate for any possible PFO.
-Pending results of bubble study could consider ALETA once patient is off one-to-one precautions and able to make her own informed medical decisions.
-Patient currently being treated with aspirin and Plavix,per Neurology
-Outpatient dose of atorvastatin 40 mg daily has been continued. LDL was 53 on my review of labs 03/15/2025
-HgbA1c was only 6.6% in outpatient dose of Farxiga 10 mg daily has been continued along with corrective insulin. Her usual dose of metformin is on hold.
-Outpatient dose of telmisartan 20 mg daily is on hold. When I reviewed the [facility] records from the primary care provider's office the patient has been having noncompliance with BP medications and they have been dealing with this as an outpatient.
Patient has for the most part been hypotensive to normotensive so far this admission.
-Psychiatry consulted
Original Note:
Consultation
Consultation Request
Date/Time Consultation Requested: 03/15/2025
Date/Time Consultation Performed: 03/15/2025
Requesting Provider: Dr. Boyce
Performing Provider: Dr. Hampton
Reason for Consultation: CVA, workup for possible cardioembolic source
Medical History
-
History of Present Illness:
Patient came to the ER yesterday after she had a fall at home and was admitted with LLE weakness and workup, cardiology consulted after MRI revealed acute/subacute CVA. Patient lives alone and says that she was on the phone with her nephew and
noted left leg heaviness and felt like she had to drag her left leg while she was walking. Patient has never had a problem like that before. Patient's nephew encouraged patient to seek emergency care, the patient declined. Then while on the phone
there was a loud sound and patient's nephew lost communication with the patient prompting him to call 911. When paramedics arrived the patient was able to answer the door and was walking, patient was taken to the ER for possible CVA. In the ER
patient had a witnessed fall while trying to get back into bed after using the bathroom. Patient was seen in consultation by neurology and had an MRI of the brain today that showed an acute/subacute CVA involving the right thalamus. Patient denies
any loss of of vision, but reports ongoing L LE weakness. Patient denies ever experiencing palpitations.
PMH:
Major depression with suicidal thoughts
HTN
DM2
Obese
EtOH use disorder, has at times been severe but patient denies drinking on a daily basis currently
Past Medical History
Past Medical History: Other (In HPI)
Past Surgical History: Orthopedic
Social History
Tobacco: Smoker
Alcohol: Other (Used to have severe EtOH use disorder drinking 12-14 shots a day several days a week, then abstinent for months and even a couple of years at a time, but now back to drinking occasionally although patient will not say how much)
Drug: None
Personal: Single
Living: Alone
Family History
Family History: Cancer, Diabetes and Hypertension
Allergies / Home Medications
Allergy/AdvReac Type Severity Reaction Status Date / Time
sulfamethoxazole (From Allergy Unknown Unknown Verified 03/14/25 23:16
Bactrim)
trimethoprim (From Bactrim) Allergy Unknown Unknown Verified 03/14/25 23:16
�Medication �Instructions �Recorded �Confirmed �Type
atorvastatin 40 mg tablet 40 mg PO HS 03/15/25 03/15/25 History
dapagliflozin propanediol 10 mg 10 mg PO DAILY 03/15/25 03/15/25 History
tablet (Farxiga)
fenofibrate nanocrystallized 145 145 mg PO DAILY 03/15/25 03/15/25 History
mg tablet
insulin degludec 100 unit/mL (3 40 unit SC HS 03/15/25 03/15/25 History
mL) subcutaneous pen (Tresiba
FlexTouch U-100 insulin)
metformin 500 mg tablet 2,000 mg PO HS 03/15/25 03/15/25 History
olanzapine 7.5 mg tablet 7.5 mg PO HS 03/15/25 03/15/25 History
sertraline 50 mg tablet 50 mg PO DAILY 03/15/25 03/15/25 History
telmisartan 20 mg tablet 20 mg PO DAILY 03/15/25 03/15/25 History
Review of Systems
-
History Source: Patient
All other systems: Negative unless noted
Physical Exam
Vital Signs
Temp Pulse Resp BP Pulse Ox
98.2 F 86 18 135/74 96
03/15/25 11:50 03/15/25 11:50 03/15/25 11:50 03/15/25 11:50 03/15/25 11:50
GEN: Sleeping initially then awakens easily and is AAO x 3, no evidence of dysarthria
HEENT: EOMI, MMM
LUNGS: RA. CTA, no wheeze
CV: SR on telemetry. Reg, S1/S2, no murmur
ABD: ND
EXT: No edema B/L LE
NEURO: No focal or lateralizing weakness
SKIN: No rash
Lab Results
03/15/25 07:23
03/15/25 07:23
Impression / Plan
-
PCP: [facility] residency program
Cardiology: None prior to admission
Impression:
Admitted with falls and L LE weakness 03/14/2025
Falls at home and witnessed falls in the ER
Acute/subacute right thalamus CVA on MRI of brain 03/15/2025
LLE weakness
Major depression with suicidal thoughts
HTN
DM2
Obese
EtOH use disorder, has at times been severe but patient denies drinking on a daily basis currently
Echo 03/15/2025: Bubble study, study pending
Plan:
-Patient came to the ER yesterday after she had a fall at home and was admitted with LLE weakness and workup, cardiology consulted after MRI revealed acute/subacute CVA. Patient lives alone and says that she was on the phone with her nephew and
noted left leg heaviness and felt like she had to drag her left leg while she was walking. Patient has never had a problem like that before. Patient's nephew encouraged patient to seek emergency care, the patient declined. Then while on the phone
there was a loud sound and patient's nephew lost communication with the patient prompting him to call 911. When paramedics arrived the patient was able to answer the door and was walking, patient was taken to the ER for possible CVA. In the ER
patient had a witnessed fall while trying to get back into bed after using the bathroom. Patient was seen in consultation by neurology and had an MRI of the brain today that showed an acute/subacute CVA involving the right thalamus. Patient denies
any loss of of vision, but reports ongoing L LE weakness. Patient denies ever experiencing palpitations.
-ECG reviewed by me is SR without acute ST changes
-Telemetry reviewed by me shows SR and sinus tachycardia without evidence of atrial arrhythmia.
-Patient found to have an acute/subacute CVA involving the right thalamus. Neurology is recommending cardiology evaluation for possible cardioembolic source as there was no evidence of significant carotid disease or large vessel occlusion in the
brain.
-Recommend echo with bubble study, ordered by me 03/15/2025. Will evaluate for any possible PFO.
-Pending results of bubble study could consider ALETA once patient is off one-to-one precautions and able to make her own informed medical decisions.
-Patient currently being treated with aspirin and Plavix, both are new additions this admission
-Outpatient dose of atorvastatin 40 mg daily has been continued. LDL was 53 on my review of labs 03/15/2025
-HgbA1c was only 6.6% in outpatient dose of Farxiga 10 mg daily has been continued along with corrective insulin. Her usual dose of metformin is on hold.
-Outpatient dose of telmisartan 20 mg daily is on hold. When I reviewed the [facility] records from the primary care provider's office the patient has been having noncompliance with BP medications and they have been dealing with this as an outpatient.
Patient has for the most part been hypotensive to normotensive so far this admission. Will follow.
[2025-03-15 17:28] LABS: Glucose - Point of Care 199 mg/dl (70-99)
--- NOTE | 2025-03-15 17:49 | CM ---
Alert forgetful anxious . Pt placed on 1:1 after a fall in room. Pt said she lives alone in 2 story home with 2 steps to enter and 13 steps to bed/bathroom.Pt said she drives and is indpedent in [place].No DME. Observation letter give explained . Copy
on chart.
NO VN /SNF hx
Pharamcy [facility]
PLAN Ongoing dc planning . Will need PT OT evals
[2025-03-15] MEDS: NOVOLOG FLEXPEN-LOW RESISTANCE 1 UNITS SC (18:05)
--- NOTE | 2025-03-15 20:45 | PTCARENOTE ---
Pt transferred from room 404 to room 423. VSS, AAOx3 but forgetful and anxious at times. 1:[address] for suicide precautions per order; bed alarm in place. Pt oriented to room, call quintanilla in reach.
[2025-03-15 21:18] LABS: Glucose - Point of Care 205 mg/dl (70-99)
[2025-03-15] MEDS: LIPITOR 40 MG PO (21:31)
[2025-03-15] MEDS: LANTUS 0.3 UNITS SC (21:31)
[2025-03-15] MEDS: ZYPREXA 7.5 MG PO (21:31)
--- NOTE | 2025-03-15 21:55 | CS.PSYCHR ---
Consult Summary - Psychiatry
-
pt seen by me this afternoon for assessment of suicidal statements
59 yo woman with past history of depression with inpatient care on two occasions, brought to ED following fall heard by nephew on phone. Pt noted to have fall in ED as well. has history of DM, HTN, RACHEL, left eye reduced vision and mobility issues
Pt had MRI which demonstrated acute to subacute thalamic infact.
Pt reports being depressed, thinking of suicide by using boric acid 'you can buy it you know' due to many stressors. Upset that cat is dying, house is a mess, health failing with falling now, cannot enjoy things. Does not see much point in living,
though is afraid of not completing act and being worse off.
Describes seeing psychiatrist Dr. Kaylyn Lake in [place], having zoloft dose tinkered with, as well as olanzapine. Last seen 3 weeks ago (I attempted to reach office but was repeatedly disconnected.)
Born and raised in [place], attended [employer] , then [employer] with marketing degree. 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 Lives alone, never , no children. Close to nephew,
would feel bad that he would be upset if she by suicide.
On exam pt is pleasant, engaging, gushing over the many items available on menu, thinks it is wonderful, then says she does not enjoy anything. When I point out that she seems to enjoy food, pt agrees that she does. No cognitive deficits, no
evidence of psychosis. + suicidal ideation with plan to ingest boric acid.
Rec: will follow as CVA and its aftermath addressed. when medically stable will need inpatient psychiatric care if remains suicidal.
[2025-03-16] VITALS (7 sets, daily range): BP systolic 127–161; BP diastolic 64–80; PULSE 87; BMI 33.3
[2025-03-16 07:14] LABS: Glucose - Point of Care 87 mg/dl (70-99)
[2025-03-16] MEDS: NOVOLOG FLEXPEN-LOW RESISTANCE SC ×2 (08:38→13:32)
[2025-03-16 08:40] LABS: Hematocrit 38.3 % (37.0-47.0); Hemoglobin 12.1 g/dL (12.0-16.0); Mean Corp Hgb Conc. 31.6 g/dL (33.0-37.0); Mean Corpuscular Volume 86.8 fL (81.0-99.0); Platelet Count 277 10^3/uL (130-400); Red Cell Dist. Width 14.7 % (11.5-14.5)
[2025-03-16] MEDS: ZOLOFT 50 MG PO (08:41)
[2025-03-16] MEDS: LOW STRENGTH ASPIRIN 81 MG PO (08:41)
[2025-03-16] MEDS: PLAVIX 75 MG PO (08:41)
[2025-03-16] MEDS: FARXIGA 10 MG PO (08:41)
[2025-03-16 09:04] LABS: Blood Urea Nitrogen 12 mg/dl (7-17); Calcium 9.0 mg/dl (8.4-10.2); Carbon Dioxide 29 mmol/L (22-30); Chloride 106 mmol/L (98-107); Estimated Creatinine Clearance 86 ml/min; Glucose 88 mg/dl (70-99); Potassium 3.6 mmol/L (3.5-5.1); Sodium 141 mmol/L (135-145); eGFR > 60.00
[2025-03-16 11:51] LABS: Glucose - Point of Care 213 mg/dl (70-99)
--- NOTE | 2025-03-16 12:17 | CM ---
CM reviewed chart, patient asleep, remains on 1:1.
Therapy recommending acute rehab, TT to Hospitalist for PMR consult.
Psych continuing to follow.
CM will continue to follow for d/c needs.
Plan; TBD, PT/OT rec acute rehab, PMR consulted. 1:1
--- NOTE | 2025-03-16 12:46 | PTCARENOTE ---
Here in department for agitated saline contrast echo. Study performed, images obtained, second injection included valsalva. Tolerated well. 1:1 remains bedside.
[2025-03-16 13:33] LABS: Glucose - Point of Care 145 mg/dl (70-99)
--- NOTE | 2025-03-16 13:55 | W.PN.NEURO.1 ---
Today's Communication / Plan
-
-continue aspirin and clopidogrel for 21 days followed by monotherapy with aspirin
Check echocardiogram
-continue atorvastatin 40 mg nightly
Neuro Assessment/Plan
Assessment
Patient is a 59 year old left-handed female with PMH significant for hypertension, DM-II and major depression who presents to [facility] ED on 03/14/2025 complaining of LLE weakness.
Head CT 03/15/2025: No acute intracranial abnormality noted.
Labs: Hgb A1C 6.6, Cholesterol 147, LDL 53
CTA head and neck: No significant stenoses
Brain MRI: Right thalamic acute ischemic stroke
Impression: Acute ischemic stroke demonstrated by MRI of brain
Plan
-continue aspirin and clopidogrel for 21 days followed by monotherapy with aspirin
Check echocardiogram
-continue atorvastatin 40 mg nightly
-PT/OT/ST evaluations
Goal of normotension
Goal of normoglycemia
Will follow as needed
Subjective/Objective
Subjective Data
Date of Service: March 16, 2025
Objective Data
Vital Signs
Temp Pulse Resp BP Pulse Ox
36.4 C 78 16 161/80 98
03/16/25 11:03 03/16/25 11:03 03/16/25 11:03 03/16/25 11:03 03/16/25 11:03
Lab Results
03/16/25 07:52
03/16/25 07:52
Sodium 141 mmol/L (135-145) 03/16/25 07:52
Potassium 3.6 mmol/L (3.5-5.1) 03/16/25 07:52
BUN 12 mg/dl (7-17) 03/16/25 07:52
Glucose 88 mg/dl (70-99) 03/16/25 07:52
Calcium 9.0 mg/dl (8.4-10.2) 03/16/25 07:52
LDL Cholesterol, Calc 53 mg/dl 03/15/25 07:23
Patient Allergies
sulfamethoxazole (From Bactrim) Allergy (Unknown, Verified 03/14/25 23:16)
Unknown
trimethoprim (From Bactrim) Allergy (Unknown, Verified 03/14/25 23:16)
Unknown
Data Reviewed
-
MRI Head: Report Reviewed and Image Reviewed
Labs: Report Reviewed
Reviewed with: Nurse Practioner
Old Records: Summarized
--- NOTE | 2025-03-16 15:31 | W.PN.HOSP.TC ---
Today's Communication/Plan
-
Complete workup for CVA
PT assessment
Assessment / Plan
Assessment / Plan
Physical exam:
General: Acutely ill
HEENT: Normocephalic, Atraumatic and Moist Mucous Membranes
Respiratory: Clear to Auscultation; Negative Wheezes, Rales or Rhonchi
Cardiac: Regular Rhythm and S1/S2
GI: Soft, Nontender and Nondistended
Musculoskeletal: No Clubbing, No Cyanosis and No Edema
Neuro: Awake, Alert and Oriented, left lower extremity weakness present, mild sensory deficit in the left lower extremity as well. Cranial nerves are intact.
Psych: Calm
A/P:
Acute to subacute stroke:
MRI confirms right thalamic infarct
CTA of the head and neck with no significant vascular occlusion
Echo with bubble study pending
Continue dual antiplatelet therapy
Continue statin
Hemoglobin A1c 6.6
LDL 53
PT OT eval
Neurology consult appreciated
Depression with ?suicidal ideas:
Patient agreeable to psychiatry evaluation
Suicidal precaution until evaluated by psychiatry
Continue current antipsychotic
Hypertension:
Continue home antihypertensives
Diabetes mellitus:
Hemoglobin A1c 6.6
Continue Lantus
Farxiga
Hold metformin acutely
Continue insulin sliding scale
Serial Accu-Cheks
Reported left side of the back cystic lesion with drain as outpatient currently healed with no residual on exam.
Hyperlipidemia:
Continue statin
DVT prophylaxis:
Lovenox SQ
CODE STATUS:
Full code
Anticipated Discharge: 24 - 48 hours
Subjective/Interval History
-
Date of Service: March 16, 2025
Objective Data
-
Labs:
Laboratory Results
03/16/25
07:52
WBC 8.1
Hgb 12.1
Hct 38.3
Plt Count 277
Sodium 141
Potassium 3.6
Chloride 106
Carbon Dioxide 29
BUN 12
Creatinine 0.7
Glucose 88
Calcium 9.0
Vital Signs:
Vital Signs
Temp Pulse Resp BP Pulse Ox
97.5 F 78 16 161/80 98
03/16/25 11:03 03/16/25 11:03 03/16/25 11:03 03/16/25 11:03 03/16/25 11:03
I&O
03/15/25 03/16/25 03/17/25
06:59 06:59 06:59
Intake Total 480 / 480 920 / 920 480 / 480
Balance 480 / 480 920 / 920 480 / 480
--- NOTE | 2025-03-16 15:51 | W.PN.UPDATE ---
Update Note
Progress Note Update
Pt see for reassessment. Discussed with her my concern over her statements about suicide, that we might need to insist on inpatient care despite her objections due to concern that she meets criteria for involuntary treatment. Very distressed,
insists she did not mean it, that she has things to do, that she needs to visit her sister in [facility] in two weeks, looking forward to it. I spoke with her sister Nadege by phone ([phone]) after first calling nephew (contact info in chart.)
Sister states pt is close to her baseline, that she is 'always trying to get people to take care of her' and that she seemed to be in fairly good spirits when sister was in for a family a few weeks ago. Had helped pt to get rid of
unwanted/unneeded belongings she had accumuilated. Sister states she is very sure pt is not at risk of suicide at this point, that she really is looking forward to their upcoming visit. Sister states she will keep in close touch with pt and nephew
to ensure safety.
No need for invluntary hospitalization, ok to stop 1:1
[2025-03-16 16:31] LABS: Glucose - Point of Care 235 mg/dl (70-99)
--- NOTE | 2025-03-16 16:39 | PTCARENOTE ---
1:1 was ordered for SI, order D/C'd. Pt remains very high fall risk r/t previous falls, compromised balance and forgetfulness/impulsiveness. Pt moved to a room closer to nurses station to mitigate fall risk. Bed and chair alarm in place. CB in
reach, reminded multiple times to use. Fall magnet and bracelet in place. PT is 'round trip' assistance to and from bathroom. hourly rounds continue.
--- NOTE | 2025-03-16 17:48 | W.PN.UPDATE ---
Update Note
Progress Note Update
Results of 2D echocardiogram done today reviewed: Left ventricular ejection fraction visually estimate 2D echocardiogram shows normal biventricular size and systolic function with mild concentric left ventricular hypertrophy. Left ventricular
ejection fraction visually estimated 60 to 65% with normal diastolic function. She has a trileaflet minimally sclerotic aortic valve with mild aortic regurgitation. Structurally and functionally normal mitral and tricuspid valves. The interatrial
septum was intact without evidence of shunt/PFO by color-flow Doppler and with negative agitated saline, bubble study with and without Valsalva.
Reviewed vital signs and telemetry: Normal sinus rhythm without arrhythmia. Normal blood pressure trends.
Continue current medical therapy including statin. Antiplatelet therapy as directed by neurology
Can consider outpatient cardiac monitoring pending patient discharge plan. Please notify us when patient is ready for discharge and we can help arrange a 2-week secured entrance monitor and cardiac follow-up.
Will sign off, recall if needed
[2025-03-16 18:35] LABS: Glucose - Point of Care 238 mg/dl (70-99)
[2025-03-16] MEDS: NOVOLOG FLEXPEN-LOW RESISTANCE 3 UNITS SC (18:40)
[2025-03-16 21:12] LABS: Glucose - Point of Care 202 mg/dl (70-99)
[2025-03-16] MEDS: ZYPREXA 7.5 MG PO (21:14)
[2025-03-16] MEDS: LIPITOR 40 MG PO (21:14)
[2025-03-16] MEDS: LANTUS 0.3 UNITS SC (21:14)
[2025-03-16] MEDS: MELATONIN 5 MG PO (22:47)
[2025-03-17] VITALS (7 sets, daily range): BP systolic 130–167; BP diastolic 67–92; PULSE 76–94; BMI 33.4
[2025-03-17 07:39] LABS: Glucose - Point of Care 82 mg/dl (70-99)
[2025-03-17] MEDS: NOVOLOG FLEXPEN-LOW RESISTANCE SC ×2 (07:59→17:46)
[2025-03-17] MEDS: LOW STRENGTH ASPIRIN 81 MG PO (09:05)
[2025-03-17] MEDS: ZOLOFT 50 MG PO (09:05)
[2025-03-17] MEDS: PLAVIX 75 MG PO (09:05)
[2025-03-17] MEDS: FARXIGA 10 MG PO (09:05)
--- NOTE | 2025-03-17 10:54 | CM ---
Addendum entered by Lauren Talavera 03/17/25 11:53:
Patient seen, reports she would like to try to go to [facility] if able. Referral in [facility]. PMR consulted.
Original Note:
CM reviewed chart, patient seen bedside.
Patient no longer on 1:1
CM discussed therapy recommendations of acute rehab, would need insurance approval, accepting acute rehab.
Patient reports she wants to go home, if possible today, and would like to go home with VN/PT/OT- [facility]
Patient reports her friend will transport her home.
Patient reports she is looking forward to going on vacation in March, wants to get home to her cat as well.
TT to Hospitalist with updates.
CM will continue to follow.
Plan; home with VN pending referral vs acute rehab
[2025-03-17 10:55] LABS: Glucose - Point of Care 228 mg/dl (70-99)
--- NOTE | 2025-03-17 14:47 | W.PN.HOSP.TC ---
Today's Communication/Plan
-
Continue dual antiplatelet therapy and statin
PT/OT assessment
Physiatry assessment for possible acute rehab placement
Assessment / Plan
Assessment / Plan
A/P:
Acute to subacute stroke:
MRI confirms right thalamic infarct
CTA of the head and neck with no significant vascular occlusion
Echo with bubble study with preserved biventricular function no significant valvular abnormalities
Continue dual antiplatelet therapy
Continue statin
Hemoglobin A1c 6.6
LDL 53
PT OT eval
Neurology consult appreciated
Persistent physical and cognitive deficits
Physiatry assessment
Depression with found to be suicidal ideation upon presentation ruled out by psychiatry.
Hypertension:
Continue home antihypertensives
Diabetes mellitus:
Hemoglobin A1c 6.6
Continue Lantus
Farxiga
Hold metformin acutely
Continue insulin sliding scale
Serial Accu-Cheks
Reported left side of the back cystic lesion with drain as outpatient currently healed with no residual on exam.
Hyperlipidemia:
Continue statin
DVT prophylaxis:
Lovenox SQ
CODE STATUS:
Full code
Anticipated Discharge: Within 24 hours
Subjective/Interval History
-
Date of Service: March 17, 2025
Objective Data
-
Vital Signs:
Vital Signs
Temp Pulse Resp BP Pulse Ox
98.1 F 76 16 130/67 98
03/17/25 07:30 03/17/25 07:30 03/17/25 07:30 03/17/25 07:30 03/17/25 07:30
I&O
03/16/25 03/17/25 03/18/25
06:59 06:59 06:59
Intake Total 920 / 920 960 / 960
Balance 920 / 920 960 / 960
Physical Exam
-
General: Well Developed and No Apparent Distress
HEENT: Normocephalic, Atraumatic and Moist Mucous Membranes
Respiratory: Clear to Auscultation
Cardiac: Regular Rhythm and S1/S2; Negative Murmur, Rub or Gallop
GI: Soft, Nontender, Nondistended and Normal Bowel Sounds; Negative Organomegaly
Rectal: Deferred by Provider
Musculoskeletal: No Clubbing, No Cyanosis and No Edema
Skin: Negative Rash
Neuro: Awake, Alert, Oriented, Nonfocal/Grossly Intact and Other (Anxious, noted to be impulsive and distractible. Noted to have multiple cues to perform simple tasks, distracted thoughts.)
[2025-03-17 15:12] LABS: Glucose - Point of Care 211 mg/dl (70-99)
[2025-03-17] MEDS: NOVOLOG FLEXPEN-LOW RESISTANCE 2 UNITS SC (15:12)
[2025-03-17 15:43] LABS: Glucose - Point of Care 206 mg/dl (70-99)
--- NOTE | 2025-03-17 17:16 | W.PN.UPDATE ---
Update Note
Progress Note Update
patient seen chart reviewed. patient is 58 yo w hx htn iddm lower extremity weakness and is here after a fall. she had been prescribed zoloft which she was tapering now at 50 mg daily and zyprexa 7.5 mg daily. she was interested in talking about
what other antidep might help her. it seems she has taken effexor cymbalta prozac paxil wellbutrin in the past and did not feel any were helpful. she could not recall doses or length of time she had taken them. she only took up to 100 mg zoloft. i
asked her why not increase dose she said she did not want to as she did not feel it helped her. in any case she did not want to make any changes in her current meds til she talks to her psychiatrist. suggested she gather a list of what she took how
much and for how long and bring it to her md. also discussed the negatives of zyprexa in terms of weight gain effect on cholesterol and glucose. she can discuss w her md. she is aware of stroke. not clear she is committed to rehab. has a trip
planned to fly to [place] to see her sister at [facility]. she may have had some momentary si. she is NOT suicidal at this point. told her whether she goes to rehab is her choice but it is highly recommended.
[2025-03-17 17:40] LABS: Glucose - Point of Care 140 mg/dl (70-99)
[2025-03-17 21:43] LABS: Glucose - Point of Care 202 mg/dl (70-99)
[2025-03-17] MEDS: LIPITOR 40 MG PO (22:48)
[2025-03-17] MEDS: ZYPREXA 7.5 MG PO (22:48)
[2025-03-17] MEDS: LANTUS 0.3 UNITS SC (22:48)
[2025-03-17] MEDS: MELATONIN 10 MG PO (23:01)
[2025-03-18 02:28] VITALS: BP 151/83
[2025-03-18 06:00] VITALS: BMI 33.0
[2025-03-18 07:30] VITALS: BP 163/88
[2025-03-18 08:06] LABS: Glucose - Point of Care 86 mg/dl (70-99)
[2025-03-18] MEDS: NOVOLOG FLEXPEN-LOW RESISTANCE SC (08:33)
[2025-03-18] MEDS: PLAVIX 75 MG PO (08:36)
[2025-03-18] MEDS: ZOLOFT 50 MG PO (08:36)
[2025-03-18] MEDS: FARXIGA 10 MG PO (08:36)
[2025-03-18] MEDS: LOW STRENGTH ASPIRIN 81 MG PO (08:36)
[2025-03-18 08:44] VITALS: BP 132/82; BP 136/79; PULSE 87; PULSE 97
[2025-03-18 10:03] VITALS: BP 153/78; BP 160/82; PULSE 87; O2SAT 98
--- NOTE | 2025-03-18 10:51 | CM ---
Addendum entered by Lauren Talavera 03/18/25 13:22:
Auth received, approved 03/18-03/22, NRD 03/23- call for updates [phone], auth #[id number].
Update provided to [facility]- can accept patient after 2:00 p.m.
Patient seen bedside, aware of d/c plan to [facility].
Plan; d/c to [facility]:
Report: [phone]

Original Note:
CM reviewed chart, reviewed with [facility] liaison, able to offer patient a bed at [facility].
Auth submitted to [facility] ([phone])- pending reference #[id number].
Will update [facility]/Hospitalist once auth received.
CM will continue to follow.
Plan; auth pending to [facility]
[2025-03-18 11:08] LABS: Glucose - Point of Care 189 mg/dl (70-99)
[2025-03-18] MEDS: NOVOLOG FLEXPEN-LOW RESISTANCE 1 UNITS SC (12:13)
--- NOTE | 2025-03-18 12:17 | W.DS.TRANS ---
DC Summary - Interpreter Translator
-
Discharge Instructions:
Discharge Diagnosis/Procedures Acute CVA
Diet Diabetic, Carb Controlled
Others Tests - A 14-day heart monitor (Rhythm Star) is being
placed prior to your discharge from the hospital
. Please wear this monitor much as possible,
but take it off when you are getting a shower
and then put back on with fresh electrodes. At
the end of the 14-day monitoring, please place
the monitor back in the postage paid envelope/
box and put it in any [employer] box for delivery back
to the cardiology office.
Instructions:
Stand-Alone Forms:
Changes to Home Medications: Yes
Discharge Medications:
DC Medications w/original date entered in [facility]
atorvastatin 40 mg tablet 40 mg PO HS High Cholesterol 03/15/25
dapagliflozin propanediol 10 mg tablet (Farxiga) 10 mg PO DAILY Diabetes 03/15/25
fenofibrate nanocrystallized 145 mg tablet 145 mg PO DAILY High Cholesterol 03/15/25
insulin degludec 100 unit/mL (3 mL) subcutaneous pen (Tresiba FlexTouch U-100 insulin) 40 unit SC HS Diabetes 03/15/25
metformin 500 mg tablet 2,000 mg PO HS Diabetes 03/15/25
olanzapine 7.5 mg tablet 7.5 mg PO HS Mental Health/Anxiety 03/15/25
sertraline 50 mg tablet 50 mg PO DAILY Mental Health/Anxiety 03/15/25
telmisartan 20 mg tablet 20 mg PO DAILY Blood Pressure 03/15/25
aspirin 81 mg chewable tablet 81 mg PO DAILY #30 tabs 03/18/25
clopidogrel 75 mg tablet 75 mg PO DAILY #19 tabs 03/18/25
pantoprazole 20 mg tablet,delayed release (Protonix) 20 mg PO DAILY #30 tabs 03/18/25
Home Medication Changes
DAPT
Pending Results: No
--- NOTE | 2025-03-18 14:03 | W.PN.UPDATE ---
Update Note
Progress Note Update
patient seen chart reviewed. discussed with nursing. the patient's sensorium is clear. she is not experiencing si. she does say she is depressed. while i do not dispute this, i also feel that a degree of dysphoria is very very understandable given
the fact that she has had a stroke. she is doing reasonably well given that fact. walked 4 x 40 feet unassisted w pt and i saw her walking to and from and she did quite well. she admits she is feeling stronger . talked about the importance of
rehab. she was accepted by [facility] but is ambivalent. encouraged her to really think about this as it is important for her future. did not change psych meds at this point. would have her reassessed on going as an out pt. there is no antidep which
will act immediately to improve mood in any case and she prefers to deal with her usual prescriber.
[2025-03-18 14:41] VITALS: BP 152/76
== END 2025-03-18 15:17 | DRG 65 ==
LOC: 4 WEST ACU 15:19
PROVIDERS: Hospitalist; Physician Assistant; ADMITTING PHYSICIAN Hospitalist; ATTENDING PHYSICIAN Internal Medicine; CONSULT PHYSICIAN Internal Medicine Cardiovascular Disease; CONSULT PHYSICIAN Psychiatry & Neurology Psychiatry; EMERGENCY PHYSICIAN Emergency Medicine; OTHER PHYSICIAN Psychiatry & Neurology Neurology
DX: I63.81 Other cerebral infarction due to occlusion or stenosis of small artery (principal); R45.851 Suicidal ideations; F32.9 Major depressive disorder, single episode, unspecified; N18.9 Chronic kidney disease, unspecified; I12.9 Hypertensive chronic kidney disease with stage 1 through stage 4 chronic kidney disease, or unspecified chronic kidney disease; E11.22 Type 2 diabetes mellitus with diabetic chronic kidney disease; E78.00 Pure hypercholesterolemia, unspecified; G47.33 Obstructive sleep apnea (adult) (pediatric); H54.62 Unqualified visual loss, left eye, normal vision right eye; E66.09 Other obesity due to excess calories; Z68.33 Body mass index [BMI] 33.0-33.9, adult; Z88.2 Allergy status to sulfonamides; Z88.1 Allergy status to other antibiotic agents; Z79.84 Long term (current) use of oral hypoglycemic drugs; Z79.4 Long term (current) use of insulin; Z79.899 Other long term (current) drug therapy; W01.0XXA Fall on same level from slipping, tripping and stumbling without subsequent striking against object, initial encounter; F17.210 Nicotine dependence, cigarettes, uncomplicated; F41.9 Anxiety disorder, unspecified; K21.9 Gastro-esophageal reflux disease without esophagitis; R29.6 Repeated falls; R29.700 NIHSS score 0; R29.703 NIHSS score 3; Z91.148 Patient's other noncompliance with medication regimen for other reason; F10.10 Alcohol abuse, uncomplicated
CPT/HCPCS: 70450; 70496; 70498; 70551; 80048; 80053; 80061; 81003; 81015; 82077; 82962; 83036; 84443; 85025; 85027; 87086; 92523; 92526; 92610; 93005; 93306; 97112; 97116; 97163; 97167; 97530; 97535; 99285; 99406; Q9967